=== PATIENT | male | born 1975 | race Caucasian/White ===

== ENCOUNTER 2024-01-12 12:26 | Inpatient (IN) | payer SELFPAY ==
[~2024-01-12] VITALS: Ht 172.7 cm; Wt 115.6 kg
[2024-01-12] VITALS (7 sets, daily range): BP systolic 113–144; BP diastolic 75–87
[~2024-01-12 12:26] MED LIST: BACTRIM DS1 TAB PO
[2024-01-12] MEDS ORDERED: POVIDONE IODINE 0.5 OZ/BTL TOP STA (12:38)
[2024-01-12] MEDS ORDERED: LIDOcaine HCl 1% (Local Anesth.) 20 ML VIAL STI STA (12:38)
[2024-01-12] MEDS ORDERED: VANCOMYCIN HCL 1 GM in SODIUM CHLORIDE 0.9% 250 ML IV ONE (12:40)
[2024-01-12] MEDS ORDERED: ISOVUE-300 (Iopamidol) 100 ML SDV IV ONE (12:40)
[2024-01-12 12:59] LABS: BASO% 0.4 % (0-3); EOS% 1.3 % (0-8); HEMATOCRIT 43.5 % (39.0-50.0); HEMOGLOBIN 14.3 g/dl (14.0-18.0); IMMATURE GRANULOCYTES 0.2 % (0.0-5.0); LYMPH% 14.9 % (15-41); MEAN CELL VOLUME 92.4 fL CALC (80.0-100.0); MEAN CORPUSCULAR HGB 30.4 pG CALC (26.0-32.0); MEAN CORPUSCULAR HGB CONC 32.9 g/dL CAL (32.0-36.0); MONO% 8.5 % (2-13); NEUT# 8.08 thou/uL (1.82-7.42); NEUT% 74.7 % (42-76); RED BLOOD COUNT 4.71 mill/uL (4.70-6.10); RED CELL DISTRI WIDTH 11.9 % (11.5-15.5)
[2024-01-12 13:16] LABS: BILIRUBIN, TOTAL 0.6 mg/dL (0.2-1.3); CREATININE 1.1 mg/dL (0.7-1.3); POTASSIUM 4.6 mmol/l (3.5-5.1); TOTAL PROTEIN 6.7 g/dL (6.3-8.2)
[2024-01-12] MEDS ORDERED: ACETAMINOPHEN 325 MG/TAB PO PRN (16:05)
[2024-01-12] MEDS ORDERED: MAGNESIUM HYDROXIDE 30 ML UDC PO PRN (16:05)
[2024-01-12] MEDS ORDERED: SODIUM CHLORIDE 0.9% 1,000 ML IV PRN (16:05)
[2024-01-12] MEDS ORDERED: MORPHINE SULFATE 4 MG/ML VIAL IV ONE (16:40)
[2024-01-12] MEDS ORDERED: KETOROLAC TROMETHAMINE 30 MG/ML SDV IV ONE (16:40)
[2024-01-12] MEDS ORDERED: MORPHINE SULFATE 4 MG/ML VIAL IV PRN (19:40)
[2024-01-12] MEDS ORDERED: VANCOMYCIN HCL 1 GM in SODIUM CHLORIDE 0.9% 250 ML IV SCH (21:00)
[2024-01-12] MEDS ORDERED: ENOXAPARIN SODIUM 40 MG/0.4 ML SYR SC SCH (21:00)
[2024-01-13] VITALS (10 sets, daily range): BP systolic 113–149; BP diastolic 64–97
[2024-01-13] MEDS ORDERED: KETOROLAC TROMETHAMINE 15 MG/ML SDV IV SCH
[2024-01-13 05:00] LABS: BASO% 0.3 % (0-3); EOS% 2.2 % (0-8); HEMATOCRIT 41.5 % (39.0-50.0); HEMOGLOBIN 13.8 g/dl (14.0-18.0); IMMATURE GRANULOCYTES 0.8 % (0.0-5.0); LYMPH% 17.9 % (15-41); MEAN CELL VOLUME 92.6 fL CALC (80.0-100.0); MEAN CORPUSCULAR HGB 30.8 pG CALC (26.0-32.0); MEAN CORPUSCULAR HGB CONC 33.3 g/dL CAL (32.0-36.0); MONO% 10.6 % (2-13); NEUT# 6.53 thou/uL (1.82-7.42); NEUT% 68.2 % (42-76); RED BLOOD COUNT 4.48 mill/uL (4.70-6.10)
[2024-01-13 05:14] LABS: ALBUMIN 3.4 g/dL (3.2-5.0); BILIRUBIN, TOTAL 0.7 mg/dL (0.2-1.3); CREATININE 1.1 mg/dL (0.7-1.3); POTASSIUM 4.8 mmol/l (3.5-5.1)
[2024-01-13] MEDS ORDERED: DEXTROSE 250 ML IV PRN (08:35)
[2024-01-13] MEDS ORDERED: FAMOTIDINE 10MG/ML 2ML SDV IV ONE (09:56)
[2024-01-13] MEDS ORDERED: LIDOcaine HCl 1% (Local Anesth.) 20 ML VIAL ONE (10:24)
[2024-01-13] MEDS ORDERED: STERILE WATER FOR IRRIGATION 1,000 ML BTL IR ONE (10:24)
[2024-01-13] MEDS ORDERED: INSULIN LISPRO 100 UNITS/ML ML SC SCH (11:00)
[2024-01-13] MEDS ORDERED: HYDROmorphone HCL 2 MG/AMP IV PRN (11:55)
[2024-01-13] MEDS ORDERED: oxyCODONE 5MG/ ACETAMINOPHEN 325MG TAB PO PRN (11:55)
[2024-01-14 04:12] VITALS: BP 91/47
[2024-01-14 05:12] LABS: BASO% 0.5 % (0-3); EOS% 3.6 % (0-8); HEMATOCRIT 39.6 % (39.0-50.0); HEMOGLOBIN 12.7 g/dl (14.0-18.0); IMMATURE GRANULOCYTES 0.4 % (0.0-5.0); LYMPH% 30.3 % (15-41); MEAN CELL VOLUME 96.4 fL CALC (80.0-100.0); MEAN CORPUSCULAR HGB 30.9 pG CALC (26.0-32.0); MEAN CORPUSCULAR HGB CONC 32.1 g/dL CAL (32.0-36.0); MONO% 10.2 % (2-13); NEUT# 4.64 thou/uL (1.82-7.42); RED BLOOD COUNT 4.11 mill/uL (4.70-6.10); RED CELL DISTRI WIDTH 11.9 % (11.5-15.5)
[2024-01-14 05:21] LABS: ALBUMIN 3.3 g/dL (3.2-5.0); BILIRUBIN, TOTAL 0.7 mg/dL (0.2-1.3); MAGNESIUM 2.1 mg/dL (1.6-2.3); POTASSIUM 4.5 mmol/l (3.5-5.1); TOTAL PROTEIN 5.9 g/dL (6.3-8.2)
[2024-01-14 07:00] VITALS: BP 111/74
[2024-01-14 14:54] VITALS: BP 130/85
[2024-01-14 18:35] VITALS: BP 141/78
[2024-01-15 00:36] VITALS: BP 137/86
[2024-01-15 04:28] VITALS: BP 108/74
[2024-01-15 07:00] VITALS: BP 142/77
[2024-01-15] MEDS ORDERED: VANCOMYCIN HCL 750 MG in SODIUM CHLORIDE 0.9% 235 ML IV SCH (13:00)
[2024-01-15 14:28] VITALS: BP 124/87
[2024-01-15 19:22] VITALS: BP 145/92
[2024-01-16 04:13] VITALS: BP 121/83
[2024-01-16 05:40] LABS: HEMATOCRIT 37.3 % (39.0-50.0); HEMOGLOBIN 12.5 g/dl (14.0-18.0); MEAN CELL VOLUME 91.6 fL CALC (80.0-100.0); MEAN CORPUSCULAR HGB 30.7 pG CALC (26.0-32.0); MEAN CORPUSCULAR HGB CONC 33.5 g/dL CAL (32.0-36.0); RED BLOOD COUNT 4.07 mill/uL (4.70-6.10); RED CELL DISTRI WIDTH 11.7 % (11.5-15.5)
[2024-01-16 05:50] LABS: ALBUMIN 3.1 g/dL (3.2-5.0); CREATININE 0.9 mg/dL (0.7-1.3); POTASSIUM 4.3 mmol/l (3.5-5.1); TOTAL PROTEIN 5.5 g/dL (6.3-8.2)
[2024-01-16 05:51] LABS: BILIRUBIN, TOTAL 0.3 mg/dL (0.2-1.3)
[2024-01-16 06:33] VITALS: BP 146/99
[2024-01-16] MEDS ORDERED: BACTRIM DS1 TAB PO ×2 (09:52→10:06)
[2024-01-16] MEDS ORDERED: METFORMIN HCL500 M1 PO (09:53)
[2024-01-16] MEDS ORDERED: MUPIROCIN2 % EX (10:00)
== END 2024-01-16 13:03 | disposition home or self-care (01) | DRG 581 ==
LOC: ED 12:26 → MS2 14:49 → ED 15:00 → ED-I 15:00 → MS2 01-13 13:46
PROVIDERS: Nurse Practitioner; Nurse Practitioner Family; ADMIT Internal Medicine; ATTEND Internal Medicine
PROC: 0J970ZZ Drainage of Back Subcutaneous Tissue and Fascia, Open Approach (ICD-10-PCS; principal; 2024-01-15)
PROC: 0JD70ZZ Extraction of Back Subcutaneous Tissue and Fascia, Open Approach (ICD-10-PCS; 2024-01-15)
DX: L02.212 Cutaneous abscess of back [any part, except buttock and flank] (principal); L03.312 Cellulitis of back [any part except buttock and flank]; E11.9 Type 2 diabetes mellitus without complications; Z86.14 Personal history of Methicillin resistant Staphylococcus aureus infection
CPT/HCPCS: J1650; J1815; J3370; Q9967

== ENCOUNTER 2024-01-16 23:43 | Emergency (ER) | payer SELFPAY ==
[~2024-01-16] VITALS: Ht 172.7 cm; Wt 113.4 kg
[~2024-01-16 23:43] MED LIST changes: +METFORMIN HCL500 M1 PO; +MUPIROCIN2 % EX
[2024-01-16 23:50] VITALS: BP 146/100
[2024-01-17] VITALS: BP 134/98
[2024-01-17 00:15] VITALS: BP 140/97
[2024-01-17 00:30] VITALS: BP 144/93
[2024-01-17 01:02] VITALS: BP 144/93
== END 2024-01-17 00:36 | disposition home or self-care (01) | DRG 951 ==
LOC: ED 23:43
DX: Z48.01 Encounter for change or removal of surgical wound dressing (principal); E11.9 Type 2 diabetes mellitus without complications; Z79.84 Long term (current) use of oral hypoglycemic drugs

== ENCOUNTER 2024-01-17 13:03 | Emergency (ER) | payer SELFPAY ==
[~2024-01-17] VITALS: Ht 172.7 cm; Wt 95.0 kg
[2024-01-17 13:12] VITALS: BP 173/105
[2024-01-17 13:30] VITALS: BP 140/88
[2024-01-17 14:01] VITALS: BP 170/106
[2024-01-17 14:09] VITALS: BP 143/88
--- NOTE | 2024-01-17 14:53 | NUR ---
Discharge follow up call completed 01/17/24. Patient states he is feeling much better since he has been taking insulin. Patient states he has nneeded assistance dressing hiswound and has been coming to ER. They have been very helpful. Patient needs assistance in applying for medical health insurance or Medicaid benefits. Pt was given the name and number of the person who could assist him at [facility] [email or web address]. Patient expressed gratitude. No other needs or concerns at this time.
== END 2024-01-17 14:14 | disposition home or self-care (01) | DRG 951 ==
LOC: ED 13:03
DX: Z48.01 Encounter for change or removal of surgical wound dressing (principal); E11.9 Type 2 diabetes mellitus without complications; Z79.84 Long term (current) use of oral hypoglycemic drugs

== ENCOUNTER 2024-01-18 10:28 | Emergency (ER) | payer SELFPAY ==
[~2024-01-18] VITALS: Ht 172.7 cm; Wt 113.6 kg
[2024-01-18 10:42] VITALS: BP 141/100
[2024-01-18 12:37] VITALS: BP 148/99
== END 2024-01-18 12:39 | disposition home or self-care (01) | DRG 951 ==
LOC: ED 10:28
DX: Z48.01 Encounter for change or removal of surgical wound dressing (principal); E11.9 Type 2 diabetes mellitus without complications; Z79.84 Long term (current) use of oral hypoglycemic drugs

== ENCOUNTER 2024-01-19 12:27 | Emergency (ER) | payer SELFPAY ==
[~2024-01-19] VITALS: Ht 172.7 cm; Wt 113.0 kg
[2024-01-19 13:21] VITALS: BP 137/91
== END 2024-01-19 13:27 | disposition home or self-care (01) | DRG 951 ==
LOC: ED 12:27
DX: Z48.01 Encounter for change or removal of surgical wound dressing (principal); E11.9 Type 2 diabetes mellitus without complications; Z79.84 Long term (current) use of oral hypoglycemic drugs

== ENCOUNTER 2024-01-20 13:03 | Emergency (ER) | payer SELFPAY ==
[~2024-01-20] VITALS: Ht 172.7 cm; Wt 113.0 kg
[2024-01-20 17:02] VITALS: BP 129/92
[2024-01-20 17:15] VITALS: BP 109/81
[2024-01-20 17:28] VITALS: BP 109/81
== END 2024-01-20 17:28 | disposition home or self-care (01) | DRG 951 ==
LOC: ED 13:03
PROC: 0HD6XZZ Extraction of Back Skin, External Approach (ICD-10-PCS; principal; 2024-01-20)
DX: Z48.01 Encounter for change or removal of surgical wound dressing (principal); E11.9 Type 2 diabetes mellitus without complications; Z79.84 Long term (current) use of oral hypoglycemic drugs

== ENCOUNTER 2024-01-21 16:35 | Emergency (ER) | payer SELFPAY ==
[~2024-01-21] VITALS: Ht 172.7 cm; Wt 113.0 kg
[2024-01-21 17:19] VITALS: BP 135/86
== END 2024-01-21 17:32 | disposition home or self-care (01) | DRG 951 ==
LOC: ED 16:35
DX: Z48.01 Encounter for change or removal of surgical wound dressing (principal); E11.9 Type 2 diabetes mellitus without complications; Z79.84 Long term (current) use of oral hypoglycemic drugs

== ENCOUNTER 2024-01-22 16:57 | Emergency (ER) | payer SELFPAY ==
[~2024-01-22] VITALS: Ht 172.7 cm; Wt 104.0 kg
[2024-01-22 17:08] VITALS: BP 146/88
[2024-01-22 17:31] VITALS: BP 117/85
[2024-01-22 18:00] VITALS: BP 127/84
[2024-01-22 18:12] VITALS: BP 127/84
== END 2024-01-22 18:17 | disposition home or self-care (01) | DRG 951 ==
LOC: ED 16:57
DX: Z48.01 Encounter for change or removal of surgical wound dressing (principal); E11.9 Type 2 diabetes mellitus without complications; Z79.84 Long term (current) use of oral hypoglycemic drugs

== ENCOUNTER 2024-01-23 15:00 | Emergency (ER) | payer SELFPAY ==
[~2024-01-23] VITALS: Ht 172.7 cm; Wt 113.3 kg
[2024-01-23 15:35] VITALS: BP 121/79
== END 2024-01-23 15:40 | disposition home or self-care (01) | DRG 951 ==
LOC: ED 15:00
DX: Z48.01 Encounter for change or removal of surgical wound dressing (principal); E11.9 Type 2 diabetes mellitus without complications; Z79.84 Long term (current) use of oral hypoglycemic drugs

== ENCOUNTER 2024-01-28 18:22 | Emergency (ER) | payer SELFPAY ==
[~2024-01-28] VITALS: Ht 172.7 cm; Wt 127.0 kg
[2024-01-28 18:35] VITALS: BP 131/83
[2024-01-28 18:45] VITALS: BP 120/80
[2024-01-28 19:00] VITALS: BP 121/84
[2024-01-28 19:17] VITALS: BP 128/80
== END 2024-01-28 19:18 | disposition home or self-care (01) | DRG 951 ==
LOC: ED 18:22
DX: Z48.01 Encounter for change or removal of surgical wound dressing (principal); E11.9 Type 2 diabetes mellitus without complications; Z79.84 Long term (current) use of oral hypoglycemic drugs

== ENCOUNTER 2024-01-29 16:54 | Emergency (ER) | payer SELFPAY ==
[~2024-01-29] VITALS: Ht 172.7 cm; Wt 108.8 kg
[2024-01-29 17:01] VITALS: BP 145/93
[2024-01-29 17:26] VITALS: BP 145/93
== END 2024-01-29 17:33 | disposition home or self-care (01) | DRG 951 ==
LOC: ED 16:54
DX: Z48.01 Encounter for change or removal of surgical wound dressing (principal); E11.9 Type 2 diabetes mellitus without complications; Z79.84 Long term (current) use of oral hypoglycemic drugs

== ENCOUNTER 2024-02-04 10:16 | Emergency (ER) | payer SELFPAY ==
[~2024-02-04] VITALS: Ht 172.7 cm; Wt 121.0 kg
[2024-02-04 10:29] VITALS: BP 149/89
== END 2024-02-04 11:06 | disposition home or self-care (01) | DRG 951 ==
LOC: ED 10:16
DX: Z48.01 Encounter for change or removal of surgical wound dressing (principal); E11.9 Type 2 diabetes mellitus without complications; Z79.84 Long term (current) use of oral hypoglycemic drugs

== ENCOUNTER 2024-02-05 11:43 | Emergency (ER) | payer SELFPAY ==
[~2024-02-05] VITALS: Ht 172.7 cm; Wt 113.0 kg
[2024-02-05 12:39] VITALS: BP 138/87
== END 2024-02-05 12:39 | disposition home or self-care (01) | DRG 951 ==
LOC: ED 11:43
DX: Z48.01 Encounter for change or removal of surgical wound dressing (principal); E11.9 Type 2 diabetes mellitus without complications; Z79.84 Long term (current) use of oral hypoglycemic drugs